=== PATIENT | female | born 1955 | race Caucasian/White ===

== ENCOUNTER 2023-12-29 20:10 | Inpatient (IN) | payer OTHER, MEDICARE ==
[2023-12-29] MEDS ORDERED: AZITHROMYCIN 500 MG VIAL IVPB ONE (21:04)
[2023-12-29] MEDS ORDERED: cefTRIAXone SODIUM 1 GM VIAL ONE (21:04)
[2023-12-29] MEDS: AZITHROMYCIN IVPB 500 MG in DEXTROSE 5%-WATER - 250 ML IVPB ONE (21:27)
[2023-12-29 21:39] LABS: HEMATOCRIT 34.6 % (32.4-45.2); HEMOGLOBIN 11.7 G/dL (10.7-15.3); MCHC 33.7 g/dl (32.0-36.0); MEAN CELL VOLUME 88.9 fl (80-96); MEAN PLT VOLUME 7.9 fl (7.5-11.1); PLATELET COUNT 299.2 10^3/uL (134-434); RBC 3.89 10^6/uL (3.60-5.2); RDW 14.6 % (11.6-15.6); WHITE BLOOD COUNT 17.9 10^3/uL (4.0-10.8)
[2023-12-29] MEDS ORDERED: ACETAMINOPHEN 500 MG TABLET (FP) ONE (21:44)
[2023-12-29] MEDS: ACETAMINOPHEN 500 MG TABLET (FP) PO ONE (21:44)
[2023-12-29 21:54] LABS: VENOUS BASE EXCESS -0.7 mmol/L (-2-2); VENOUS O2 SATURATION 68.4 % (70-80); VENOUS PCO2 37.7 mmHg (38-52); VENOUS PH 7.413 (7.310-7.410)
[2023-12-29 22:00] LABS: ALBUMIN 3.7 g/dl (3.4-5.0); BILIRUBIN,TOTAL 0.8 mg/dl (0.2-1); CALCIUM 8.6 mg/dl (8.5-10.1); CREATININE 0.8 mg/dl (0.6-1.3); POTASSIUM 3.8 mmol/L (3.5-5.1); TOT PROT 6.2 g/dl (6.4-8.2)
[2023-12-29] MEDS: CEFTRIAXONE 1,000 MG in DEXTROSE 5%-WATER - 50 ML IVPB ONE (22:52)
[2023-12-29] MEDS: SODIUM CHLORIDE 1,000 ML IV SCH (23:12)
[2023-12-29] MEDS ORDERED: DOCUSATE SODIUM 100 MG CAPSULE (FP) PO PRN (23:55)
[2023-12-30 01:17] VITALS: BMI 24.5
[2023-12-30] MEDS: ACETAMINOPHEN 325 MG TABLET (FP) PO PRN (01:33)
[2023-12-30] MEDS: guaiFENesin/D-METHORPHAN HB 10 ML UNIT-DOSE CUPS PO PRN (01:34)
[2023-12-30] MEDS ORDERED: ALBUTEROL SO4 HFA INHALER IH PRN (05:24)
[2023-12-30] MEDS: guaiFENesin/D-METHORPHAN TAB.ER.12H PO SCH (06:16)
[2023-12-30] MEDS: LEVOTHYROXINE NA 50 MCG TABLET (FP) PO SCH (06:16)
[2023-12-30 08:41] LABS: CALCIUM 8.2 mg/dl (8.5-10.1); CREATININE 0.6 mg/dl (0.6-1.3); MAGNESIUM 1.9 mg/dL (1.8-2.4); POTASSIUM 3.9 mmol/L (3.5-5.1)
[2023-12-30] MEDS: SODIUM CHLORIDE 1,000 ML IV SCH (08:42)
[2023-12-30] MEDS: guaiFENesin/D-METHORPHAN HB 10 ML UNIT-DOSE CUPS PO SCH (08:42)
[2023-12-30 09:27] LABS: BASO % 0.3 % (0-2.0); EOS % 0.5 % (0-4.5); HEMATOCRIT 31.7 % (32.4-45.2); HEMOGLOBIN 10.3 GM/dL (10.7-15.3); LYMPH % 6.9 % (8-40); MCH 28.8 pg (25.7-33.7); MCHC 32.5 g/dl (32.0-36.0); MEAN CELL VOLUME 88.4 fl (80-96); MONO % 8.2 % (3.8-10.2); NEUT % 84.1 % (42.8-82.8); PLATELET COUNT 299 10^3/uL (134-434); RBC 3.58 M/mm3 (3.60-5.2); RDW 13.8 % (11.6-15.6); WHITE BLOOD COUNT 16.3 K/mm3 (4.0-10.0)
[2023-12-30] MEDS ORDERED: guaiFENesin/D-METHORPHAN TAB.ER.12H PO SCH (10:00)
[2023-12-30] MEDS: CEFTRIAXONE 1 GM in DEXTROSE 5%-WATER - 50 ML IVPB SCH (10:10)
[2023-12-30] MEDS: AZITHROMYCIN IVPB 500 MG/250 ML BAG IVPB SCH (10:10)
[2023-12-30] MEDS: ALBUTEROL SO4 2.5/IPRATROPIUM 0.5 INH SOL 3 ML VIAL.NEB. NEB SCH (11:14)
[2023-12-31 08:46] LABS: HEMATOCRIT 31.4 % (32.4-45.2); HEMOGLOBIN 10.3 G/dL (10.7-15.3); MCH 29.3 pg (25.7-33.7); MCHC 32.8 g/dl (32.0-36.0); MEAN CELL VOLUME 89.4 fl (80-96); MEAN PLT VOLUME 8.4 fl (7.5-11.1); PLATELET COUNT 310.7 10^3/uL (134-434); RBC 3.51 10^6/uL (3.60-5.2); RDW 14.4 % (11.6-15.6); WHITE BLOOD COUNT 14.4 10^3/uL (4.0-10.8)
[2023-12-31] MEDS: ENOXAPARIN NA (PORCINE) 40 MG/0.4 ML DISP.SYRIN SQ SCH (09:31)
[2023-12-31 09:40] LABS: ALBUMIN 3.3 g/dl (3.4-5.0); BILIRUBIN,TOTAL 0.7 mg/dl (0.2-1); CALCIUM 8.2 mg/dl (8.5-10.1); CREATININE 0.6 mg/dl (0.6-1.3); PHOSPHOROUS 3.6 (2.5-4.9); POTASSIUM 3.8 mmol/L (3.5-5.1); TOT PROT 5.5 g/dl (6.4-8.2)
[2023-12-31] MEDS ORDERED: MELATONIN 5 MG TABLETS PO PRN (17:37)
[2023-12-31] MEDS: guaiFENesin/D-METHORPHAN HB 10 ML UNIT-DOSE CUPS PO SCH (19:28)
[2023-12-31] MEDS: ACETAMINOPHEN 325 MG TABLET (FP) PO PRN (21:14)
[2024-01-01 09:48] LABS: HEMATOCRIT 31.3 % (32.4-45.2); MCH 28.4 pg (25.7-33.7); MCHC 31.8 g/dl (32.0-36.0); MEAN CELL VOLUME 89.3 fl (80-96); MEAN PLT VOLUME 8.2 fl (7.5-11.1); PLATELET COUNT 365.3 10^3/uL (134-434); RDW 14.6 % (11.6-15.6); WHITE BLOOD COUNT 11.1 10^3/uL (4.0-10.8)
[2024-01-01 10:24] LABS: ALBUMIN 3.3 g/dl (3.4-5.0); BILIRUBIN,TOTAL 0.6 mg/dl (0.2-1); CALCIUM 8.3 mg/dl (8.5-10.1); CREATININE 0.6 mg/dl (0.6-1.3); MAGNESIUM 2.1 mg/dL (1.8-2.4); PHOSPHOROUS 3.5 (2.5-4.9); POTASSIUM 3.8 mmol/L (3.5-5.1); TOT PROT 5.6 g/dl (6.4-8.2)
[2024-01-02 02:18] VITALS: RESP 18
[2024-01-02 09:50] VITALS: BP 140/59; PULSE 87; TEMP 98.5
== END 2024-01-02 14:15 | disposition home or self-care (01) | DRG 195 ==
LOC: FER 20:10 → FM/S 12-30 00:21 → OBSVTOIN 12-30 11:10
PROVIDERS: ADMIT Internal Medicine; ATTEND Internal Medicine
DX: J18.9 Pneumonia, unspecified organism (principal); E03.9 Hypothyroidism, unspecified; R74.01 Elevation of levels of liver transaminase levels; R50.9 Fever, unspecified
CPT/HCPCS: 0241U-QW; 36415; 71045-TC-FY; 80048; 80053; 82550; 82803; 83605; 83735; 84100; 84443; 84484; 85025; 85027; 87040; 93005; 94640; 97116-GP; 97161-GP; 99285-25; G0378

== ENCOUNTER 2025-06-17 17:40 | Emergency (ER) | payer OTHER, MEDICARE ==
[2025-06-17 18:02] VITALS: BP 142/69; PULSE 88; RESP 16; TEMP 98.2; BMI 26.5
[2025-06-17] MEDS ORDERED: ACETAMINOPHEN 325 MG TABLET (FP) ONE (19:07)
[2025-06-17] MEDS: ACETAMINOPHEN 325 MG TABLET (FP) PO ONE (19:10)
== END 2025-06-17 20:00 | disposition home or self-care (01) ==
LOC: FER 17:40
DX: S80.211A Abrasion, right knee, initial encounter (principal); W01.198A Fall on same level from slipping, tripping and stumbling with subsequent striking against other object, initial encounter
CPT/HCPCS: 73562-TC-RT-FY; 99283-25